=== PATIENT | male | born 1970 | race Caucasian/White ===

== ENCOUNTER 2016-07-25 10:38 | Emergency (ER) | payer OTHER ==
[~2016-07-25] VITALS: Ht 177.8 cm; Wt 89.4 kg
[2016-07-25 11:12] LABS: ABSOLUTE BASOPHIL COUNT 0.1 /CUMM (0.0-0.2); ABSOLUTE EOSINOPHIL COUNT 0.3 /CUMM (0.0-0.7); ABSOLUTE GRANULOCYTE CT 7.1 /CUMM (1.4-6.5); ABSOLUTE LYMPH COUNT 3.1 /CUMM (1.2-3.4); ABSOLUTE MONOCYTE COUNT 0.7 /CUMM (0.10-0.60); BASOPHIL % 0.6 % (0.0-2.0); EOSINOPHIL % 2.8 % (0-5); GRANULOCYTE % 63.1 % (42.2-75.2); HEMATOCRIT 44.2 % (42-52); MEAN CORPUSCULAR HGB 29.1 PG (27.0-31.0); MEAN CORPUSCULAR VOLUME 85.5 FL (80.0-94.0); MEAN PLATELET VOLUME 8.7 FL (7.4-10.4); PLATELET COUNT 290 /CUMM (130-400); RBC DISTRIBUTION WIDTH 13.9 % (11.5-14.5); RED BLOOD CELL CT 5.16 /CUMM (4.70-6.10); WHITE BLOOD CELL COUNT 11.3 /CUMM (4.8-10.8)
[2016-07-25] MEDS ORDERED: OXYCODONE HCL5 M1 PO (11:41)
[2016-07-25] MEDS ORDERED: METHOCARBAMOL500 M1 PO (11:42)
--- NOTE | 2016-07-25 11:53 | ED CARDIAC/CP/PALPITATIONS ---
History of Present Illness General Chief Complaint: Chest Pain Stated Complaint: CP/BILATERAL LOWER EXT PAIN Source: patient, old records Exam Limitations: no limitations Allergies Coded Allergies: No Known Allergies (07/25/16) Reconcile Medications Methocarbamol 500 MG TABLET 1 TAB PO Q8 MUSCLE SPASMS (Reported) Methocarbamol (Robaxin) 500 MG TABLET 1 TAB PO TID PRN spasm Oxycodone HCl 5 MG TABLET 1 TAB PO Q4 HRS NEEDED PRN PAIN (Reported) Oxycodone HCl 5 MG CAPSULE 1 CAP PO BID PRN pain Triage Note: PT SENT BY PMD TO RULE OUT DVT/PE. PT HAD R HIP SURGERY 06/25 AND THAT FOR THE PAST 3 WEEKS HE HAS BEEN GETTING INCREASED PAIN TO BILATERAL CALVES AND MID CHEST. ALSO STATES THAT HE HAS EPISODES OF SOB, O2 SAT 96 % ON RA. PT TAKES PAIN MEDS AT HOME AND REFUSES MEDS AT THIS TIME. PT HAS BEEN OFF COUMADIN SINCE 07/15 Triage Nurses Notes Reviewed? yes Onset: Gradual Duration: week(s): (3), intermittent Timing: recent history Quality/Severity: mild, moderate Location: central, epigastric Radiation: no radiation Activities at Onset: EXERTION Prior Chest Pain/Card Workup: no prior chest pain Aspirin Today: no aspirin today Associated Symptoms: LEG CRAMPS HPI: This is a 45-year-old male with recent hip surgery in June 25 at [facility] presents to the ER for evaluation complaining of central chest pain intermittently described as a tightness associated with bilateral leg cramps that is worse "behind my knees" that comes on after walking short distances. Patient states this is been going on since his hip surgery. He was taking off Coumadin earlier this month. He denies any shortness of breath cough hemoptysis. There is no leg swelling. He's been taking oxycodone and Robaxin for pain which reports was helping help her and out of the Robaxin. He denies any abdominal pain nausea vomiting or diarrhea. He denies any symptoms currently at rest. He is an active smoker no history of COPD or asthma. (ALHAJI MOSELEY,REY) Vital Signs & Intake/Output Vital Signs & Intake/Output Vital Signs Date Time Temp Pulse Resp B/P Pulse O2 O2 Flow FiO2 Ox Delivery Rate 07/25 1355 98.3 74 16 124/78 100 Room Air 07/25 1203 99 Room Air 07/25 1052 98.5 82 18 133/82 96 Room Air Past History Travel History Traveled to [place] past 21 day No Medical History Any Pertinent Medical History? 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 No (REY MILLAN) Review of Systems Review of Systems Constitutional: Reports: see HPI. All Other Systems: Reviewed and Negative Comments Review of systems: See HPI, All other systems negative. Constitutional, no chills no fever, no malaise HEENT: No visual changes no sore throat no congestion Cardiovascular: chest pain , no palpitation Skin, no jaundice no rashes, no change in skin Respiratory: No dyspnea no cough no sputum GI: No nausea no vomiting, no diarrhea, no bloating/constipation : No dysuria Muscle skeletal: No joint pain, no joint swelling, no back pain, no neck pain, Neurologic: No numbnessno headache Psych: No stress Heme/endocrine: No bruising no bleeding Immunology: No lymphadenopathy (REY MILLAN) Physical Exam Physical Exam General Appearance: well developed/nourished, no apparent distress, alert, awake Cardiovascular: regular rate/rhythm Comments: Well-developed well-nourished person in no acute distress HEENT: Normal EENT exam; PERRL, EOMI, HEAD is atraumatic. moist mucous membranes. Neck: Supple, normal range of motion Back: Nontender, no CVA tenderness. Full range of motion Cardiovascular: Regular rate and rhythms no murmurs rubs or gallops, normal JVP Respiratory: Chest nontender.There were no bony deformities, no asymmetry. No respiratory distress. Patient speaking in full complete sentences. Breath sounds clear to auscultation bilaterally: NO W/R/R Abdomen: Soft, nontender nondistended, no appreciable organomegaly. Normal bowel sounds. No rebound/guarding, Extremity: No edema, negative Homans sign full range of motion of extremities, normal and equal pulses bilaterally, 5 out of 5 strength noted to bilateral upper and lower extremities Neuro: Alert oriented x3, motor sensory normal. There were no obvious focal neurologic abnormalities. Skin: No appreciable rash on exposed skin, skin is warm and dry. Psych: Mood and affect is normal, memory and judgment is normal. Core Measures ACS in differential dx? Yes Severe Sepsis Present: No Septic Shock Present: No (ALHAJI MOSELEY,REY) Progress Differential Diagnosis: AMI, aortic dissection, atrial fibrillation, CHF/pulm edema, musculoskeletal pain, myocarditis, pancreatitis, pericarditis, pneumonia, pneumothorax, PSVT, pulmonary embolism, unstable angina Diagnostic Imaging: Viewed by Me: CT Scan, Ultrasound. Discussed w/RAD: CT Scan, Ultrasound. Radiology Impression: PATIENT: REY BROWN PRESENT AGE: 45 PATIENT ACCOUNT NO: [id number] : 71 LOCATION: [facility] ORDERING PHYSICIAN: REY MOSELEY SERVICE DATE: 07/25/16 EXAM TYPE: CAT - CTA CHEST-PULMONARY EMBOLISM EXAMINATION: CT ANGIOGRAM OF THE CHEST WITH CONTRAST (CT PULMONARY ANGIOGRAM FOR PE) CLINICAL INFORMATION: Recent hip surgery. Leg pain and swelling. Suspected pulmonary embolism. COMPARISON: No pertinent prior studies are available for comparison. TECHNIQUE: Prior to contrast administration, noncontrast localization images were obtained. Subsequently, multidetector volumetric imaging was performed from the thoracic inlet to below the diaphragms following the administration of 94 mL of Optiray 350 intravenous contrast. No contrast reaction reported. Sagittal, coronal, and MIP oblique sagittal reformatted images were obtained on the CT workstation, uploaded to PACS, and reviewed. Total exam dose-length product 500.78 mGy-cm FINDINGS: QUALITY OF STUDY/CONTRAST BOLUS: Satisfactory. PULMONARY ARTERIES: Pulmonary arteries are normal in caliber and there are no embolic filling defects within the main, lobar or segmental vessels. THORACIC AORTA: No intramural hematoma, aneurysm or dissection. LUNGS AND PLEURA: Trachea and central airways are widely patent and normal in caliber. Small amount of mucus is seen along the posterior wall of the bronchus intermedius. Minimal atelectasis is present in the dependent aspect of each lung. There is mild centrilobular and paraseptal emphysema. Lungs have mosaic attenuation with scattered areas of hyperlucency of air trapping phenomenon. 0.4 cm triangular- shaped opacity along the minor fissure is compatible with a perifissural lymph node (coronal reformatted image 31 of 92). 0.6 cm smoothly marginated, noncalcified, solid nodule in the left upper lobe has an average diameter of 0.6 cm (image 139, series 2) and requires follow-up. Is uncertain whether this represents a pulmonary lymph node, granuloma or small neoplasm. No pulmonary edema, consolidation pneumothorax or pleural effusion. MEDIASTINUM: Cardiac chambers are normal in caliber. No pericardial effusion. The esophagus is unremarkable. Within the visualized lower neck, the examined portion of the thyroid gland is unremarkable. LYMPHATICS: No axillary, hilar, mediastinal or internal mammary lymphadenopathy. UPPER ABDOMEN: Unremarkable. No reflux of contrast into the hepatic veins to suggest elevated right heart pressures. OSSEOUS STRUCTURES: No acute or suspicious osseous abnormality. IMPRESSION: - No evidence of pulmonary embolism - Mild pulmonary emphysema and scattered areas of air trapping phenomenon. - 0.6 cm solid nodule in the left upper lobe requires follow-up. In a low-risk patient, obtain noncontrast chest CT follow-up in the next 6 - 12 months. However, if the patient is clinically deemed to be at high risk, then obtain follow-up in the next 3-6 months. DICTATED BY: SHIRA NORTON MD DATE/TIME DICTATED:07/25/161256 SERVICE OR WORK DISPATCHER CHIEF:MIKHAIL DATE/TIME TRANSCRIBED:07/25/161256 CONFIDENTIAL, DO NOT COPY WITHOUT APPROPRIATE AUTHORIZATION. <Electronically signed in Other Vendor System> SIGNED BY: SHIRA NORTON MD 07/25/16 1312, PATIENT: REY BROWN PRESENT AGE: 45 PATIENT ACCOUNT NO: [id number] : 71 LOCATION: [facility] ORDERING PHYSICIAN: REY MOSELEY SERVICE DATE: 07/25/16 EXAM TYPE : US - US-EXT BILAT VENOUS DOPPLER EXAMINATION: US TRIPLEX LOWER EXTREMITY, BILATERAL CLINICAL INFORMATION: Recent hip surgery. Leg pain and swelling. Edema. COMPARISON: None TECHNIQUE: Color-flow triplex imaging with spectral analysis and compression Doppler were performed on the bilateral lower extremities. FINDINGS: Respiratory variation, normal compression and augmented flow are noted throughout the bilateral lower extremities. The visualized common femoral vein, superficial femoral vein, profunda femoral vein, popliteal vein and midcalf peroneal and posterior tibial venous segments show no evidence of deep venous thrombosis. There is no Sloan's cyst. There is no focal abnormality seen in the bilateral posterior calf areas of pain. IMPRESSION: Normal triplex scan without evidence of deep venous thrombosis involving the bilateral lower extremities. DICTATED BY: ROMMEL MCCONNELL MD DATE/TIME DICTATED:07/25/161331 SERVICE OR WORK DISPATCHER CHIEF:MIKHAIL DATE/TIME TRANSCRIBED:07/25/161331 CONFIDENTIAL, DO NOT COPY WITHOUT APPROPRIATE AUTHORIZATION. <Electronically signed in Other Vendor System> SIGNED BY: JAYESH VAUGHN,ROMMEL 07/25/161335 Initial ED EKG: NORMAL SINUS AT 70, NO ACUTE st SEGMENT CHANGES NORMAL AXIS (REY MILLAN) Plan of Care: Orders Procedure Date/time Status Add-on Test (ER Only) 07/25 1154 Active TROPONIN LEVEL 07/25 1100 Complete D-DIMER 07/25 1049 Complete COMPREHENSIVE METABOLIC PANEL 07/25 1049 Complete CBC WITHOUT DIFFERENTIAL 07/25 1049 Complete EKG 07/25 1039 Active Laboratory Tests 07/25/16 1100: Anion Gap 12, Estimated GFR > 60, BUN/Creatinine Ratio 14.4, Glucose 98, Calcium 9.8, Total Bilirubin 0.4, AST 30, ALT 54, Alkaline Phosphatase 102, Troponin I < 0.01, Total Protein 7.5, Albumin 4.6, Globulin 2.9, Albumin/Globulin Ratio 1.6, D-Dimer 278 H, CBC w Diff NO MAN DIFF REQ, RBC 5.16, MCV 85.5, MCH 29.1, RDW 13.9, MPV 8.7, Gran % 63.1, Lymphocytes % 27.5, Monocytes % 6.0, Eosinophils % 2.8, Basophils % 0.6, Absolute Granulocytes 7.1 H, Absolute Lymphocytes 3.1, Absolute Monocytes 0.7 H, Absolute Eosinophils 0.3, Absolute Basophils 0.1, PUBS MCHC 34.0 Labs ordered old records reviewed patient denies any skin complaints at this time Case discussed with Dr. Diaz. I discussed the patient laid his CAT scan findings including incidental findings and ultrasound report need for close follow-up with his orthopedist he is scheduled to see them on August 09 advised to call today to see if he can be seen sooner, rest ice as needed prescription for oxycodone and Robaxin were provided advised close follow-up return anytime sooner with any concerns, he is ambulatory with crutches here in the ER he feels controlled this plan I answered all his questions cleared for discharge (REY MILLAN) Departure Departure Time of Disposition: 1401 Disposition: HOME OR SELF CARE Condition: Stable Clinical Impression Primary Impression: Leg pain Secondary Impressions: Lung nodule Referrals: KYRA VAUGHN,STEFAN (PCP/Family) Additional Instructions: Follow-up with your orthopedist today for follow-up evaluation to see if he can be seen sooner than August 09. Oxycodone and Robaxin as directed use caution as these will make you drowsy no driving or drinking alcohol while taking. Follow- up with your primary care physician as discussed regarding the incidental findings on your CAT scan today regarding the lung nodule. Return anytime sooner with any concerns. These prescriptions were sent to your pharmacy Departure Forms: Customer Survey General Discharge Information Prescriptions: Current Visit Scripts Oxycodone HCl 1 CAP PO BID PRN pain #10 CAP Methocarbamol (Robaxin) 1 TAB PO TID PRN spasm #15 TAB (REY MILLAN) PA/CHIEF TECHNICAL OFFICER Co-Sign Statement Statement: ED Attending supervision documentation- [] I saw and evaluated the patient. I have also reviewed all the pertinent lab results and diagnostic results. I agree with the findings and the plan of care as documented in the PA's/CHIEF TECHNICAL OFFICER's documentation. [X] I have reviewed the ED Record and agree with the PA's/CHIEF TECHNICAL OFFICER's documentation. [] Additions or exceptions (if any) to the PAs/CHIEF TECHNICAL OFFICER's note and plan are summarized below: [] (FRANSISCA VAUGHN,VELMA Land) Critical Care Note Critical Care Note Critical Care Time: non-applicable (REY MILLAN)
--- NOTE | 2016-07-25 13:12 | CT SCAN REPORT ---
EXAMINATION: CT ANGIOGRAM OF THE CHEST WITH CONTRAST (CT PULMONARY ANGIOGRAM FOR PE) CLINICAL INFORMATION: Recent hip surgery. Leg pain and swelling. Suspected pulmonary embolism. COMPARISON: No pertinent prior studies are available for comparison. TECHNIQUE: Prior to contrast administration, noncontrast localization images were obtained. Subsequently, multidetector volumetric imaging was performed from the thoracic inlet to below the diaphragms following the administration of 94 mL of Optiray 350 intravenous contrast. No contrast reaction reported. Sagittal, coronal, and MIP oblique sagittal reformatted images were obtained on the CT workstation, uploaded to PACS, and reviewed. Total exam dose-length product 500.78 mGy-cm FINDINGS: QUALITY OF STUDY/CONTRAST BOLUS: Satisfactory. PULMONARY ARTERIES: Pulmonary arteries are normal in caliber and there are no embolic filling defects within the main, lobar or segmental vessels. THORACIC AORTA: No intramural hematoma, aneurysm or dissection. LUNGS AND PLEURA: Trachea and central airways are widely patent and normal in caliber. Small amount of mucus is seen along the posterior wall of the bronchus intermedius. Minimal atelectasis is present in the dependent aspect of each lung. There is mild centrilobular and paraseptal emphysema. Lungs have mosaic attenuation with scattered areas of hyperlucency of air trapping phenomenon. 0.4 cm triangular-shaped opacity along the minor fissure is compatible with a perifissural lymph node (coronal reformatted image 31 of 92). 0.6 cm smoothly marginated, noncalcified, solid nodule in the left upper lobe has an average diameter of 0.6 cm (image 139, series 2) and requires follow-up. Is uncertain whether this represents a pulmonary lymph node, granuloma or small neoplasm. No pulmonary edema, consolidation pneumothorax or pleural effusion. MEDIASTINUM: Cardiac chambers are normal in caliber. No pericardial effusion. The esophagus is unremarkable. Within the visualized lower neck, the examined portion of the thyroid gland is unremarkable. LYMPHATICS: No axillary, hilar, mediastinal or internal mammary lymphadenopathy. UPPER ABDOMEN: Unremarkable. No reflux of contrast into the hepatic veins to suggest elevated right heart pressures. OSSEOUS STRUCTURES: No acute or suspicious osseous abnormality. IMPRESSION: - No evidence of pulmonary embolism - Mild pulmonary emphysema and scattered areas of air trapping phenomenon. - 0.6 cm solid nodule in the left upper lobe requires follow-up. In a low-risk patient, obtain noncontrast chest CT follow-up in the next 6 - 12 months. However, if the patient is clinically deemed to be at high risk, then obtain follow-up in the next 3-6 months.
--- NOTE | 2016-07-25 13:36 | ULTRASOUND REPORT ---
EXAMINATION: US TRIPLEX LOWER EXTREMITY, BILATERAL CLINICAL INFORMATION: Recent hip surgery. Leg pain and swelling. Edema. COMPARISON: None TECHNIQUE: Color-flow triplex imaging with spectral analysis and compression Doppler were performed on the bilateral lower extremities. FINDINGS: Respiratory variation, normal compression and augmented flow are noted throughout the bilateral lower extremities. The visualized common femoral vein, superficial femoral vein, profunda femoral vein, popliteal vein and midcalf peroneal and posterior tibial venous segments show no evidence of deep venous thrombosis. There is no Sloan's cyst. There is no focal abnormality seen in the bilateral posterior calf areas of pain. IMPRESSION: Normal triplex scan without evidence of deep venous thrombosis involving the bilateral lower extremities.
[2016-07-25 13:55] VITALS: BP 124/78
[2016-07-25] MEDS ORDERED: OXYCODONE HCL5 M2 PO (14:04)
[2016-07-25] MEDS ORDERED: ROBAXIN500 M1 PO (14:04)
== END 2016-07-25 14:21 ==
LOC: ERH 10:38
PROVIDERS: Emergency Medicine
DX: M79.604 Pain in right leg (principal); M79.605 Pain in left leg; R91.1 Solitary pulmonary nodule; R07.89 Other chest pain
CPT/HCPCS: 93005; 93010; 93970

== ENCOUNTER → 2017-10-15 | Day surgery (SDC) | payer OTHER ==
[~2017-10-15] VITALS: Ht 177.8 cm; Wt 88.5 kg
[~2017-10-15] MED LIST: METHOCARBAMOL500 M1 PO; OXYCODONE HCL5 M1 PO; OXYCODONE HCL5 M2 PO; ROBAXIN500 M1 PO
--- NOTE | 2017-10-15 14:32 | Operative Report ---
Operative/Inv Procedure Report Surgery Date: 10/15/17 Name of Procedure: #1. Right great toe cheilectomy #2. Right plantar plate repair great toe first metatarsophalangeal joint Pre-Operative Diagnosis: #1 right hallux rigidus grade 1 #2 right partial tear plantar plate great toe Post-Operative Diagnosis: Same Estimated Blood Loss: none Surgeon/Repairer Wood Furniture: Ant Stafford MD Anesthesia: laryngeal mask airway IV Fluids: See anesthesia record Implants: None Specimens: None Tourniquet: 40 minutes Complications: None Condition: Stable Operative/Procedure Note Note: After informed consent was obtained and the correct limb was identified patient brought to operating placed on table supine position. After administration of anesthesia patient's right foot was prepped and draped usual sterile fashion. An Esmarch was used as a tourniquet around the ankle. To begin the procedure we started at the cheilectomy. Dorsal incision was made over the first metatarsal phalangeal joint and sharp dissection was carried down to the skin. Care was taken avoid the extensor tendons. Sharp dissection was carried out on the tendons were retracted laterally. The capsule was incised sharply with #15 blade. Osteophytes removed from the Boxell phalanx and first metatarsal head. Once this was done a osteotome was used to remove the dorsal 20% of the first metatarsal head where there was some wearing of the cartilage. The arthritis and arthritic changes were minimal. The wound was irrigated. The capsules repaired with 0 Vicryl interrupted sutures. Subcutaneous tissues closed with 3- 0 Vicryl interrupted sutures and skin was closed with 3-0 nylon interrupted sutures. Attention was then turned to the plantar plate repair. An incision was made on the plantar medial aspect of the toe and extended distally on the plantar surface of the first metatarsophalangeal joint Sharp dissection carried down to the skin and subcutaneous tissue with care to avoid neurovascular structures. The tendon for the adductor hallucis belly was partially torn. The plantar plate was partially torn as well. The flexor tendons were identified. And we' re able to repair with a 0 Vicryl interrupted sutures the partial plantar plate tendon as well as the tendon for the adductor hallucis muscle belly. Once we got pneumatic repair the wound was irrigated. The subcutaneous tissues were closed with 2-0 Vicryl interrupted sutures and the skin was closed with 3-0 nylon interrupted sutures. Sterile dressing was applied and the patient was awakened taken recovery in stable condition.
== END ==
LOC: STS 02:47
DX: M20.21 Hallux rigidus, right foot (principal); M19.071 Primary osteoarthritis, right ankle and foot; M67.873 Other specified disorders of tendon, right ankle and foot; M77.41 Metatarsalgia, right foot; F17.200 Nicotine dependence, unspecified, uncomplicated
CPT/HCPCS: J0690; J2250; J3490